=== PATIENT | male | born 1975 | race Caucasian/White ===

== ENCOUNTER 2017-04-28 08:36 | Emergency (ER) | payer SELFPAY ==
[2017-04-28] MEDS ORDERED: DEXAMETHASONE SOD PHOS INJ 10 MG/1 ML VIAL IM ONE (10:03)
--- NOTE | 2017-04-28 10:10 | RADIOLOGY REPORT (SQ) ---
EXAM DESCRIPTION: CERV SP 4 OR 5 VIEWS COMPLETED DATE/TIME: 04/28/2017 10:01 am REASON FOR STUDY: right neck pain, radiculitis RUE COMPARISON: None. NUMBER OF VIEWS: Five views. TECHNIQUE: AP, lateral, obliques and odontoid radiographic images acquired of the cervical spine. LIMITATIONS: None. FINDINGS: MINERALIZATION: Normal. ALIGNMENT: Anatomic. VERTEBRAE: Vertebral bodies of normal height. DISCS: No significant osteophytes or sclerosis. Disc height maintained. FORAMINA: No osteophytes or foraminal narrowing. LATERAL AND POSTERIOR ELEMENTS: Facets, lateral masses and spinous processes without significant find ings. HARDWARE: None in the spine. SOFT TISSUES: No masses or calcifications. Lung apices clear. OTHER: No other significant finding. IMPRESSION: NO SIGNIFICANT RADIOGRAPHIC FINDING IN THE CERVICAL SPINE. TECHNICAL DOCUMENTATION: JOB ID: [id number] [employer])- All Rights Reserved
--- NOTE | 2017-04-28 10:11 | ER Document Report ---
ED General - General Chief Complaint: Numbness of Arm Stated Complaint: RIGHT ARM PAIN Time Seen by Provider: 04/28/17 09:20 TRAVEL OUTSIDE OF THE [place] IN LAST 30 DAYS: No - HPI Notes: Patient with a history of chronic neck pain presents the ED complaining of intermittent tingling and numbness to his right upper extremity that started this morning. Patient states that he has had this in the past and was evaluated for it, but cannot remember what his diagnosis was. Patient states that the symptoms are exacerbated when he abduction and flexes his right arm at the shoulder. Patient states that he does feel a spasm in his right cervical paraspinal area. Otherwise, he states that he is feeling well without any other concerns or complaints. He denies any significant past medical history. Denies any procedures or injections into his back/neck. Denies any IV drug use. Denies any headache, fever, head injury, changes in vision/speech/ mentation/hearing, URI, sore throat, chest pain, palpitations, syncope, cough, shortness of breath, wheeze, dyspnea, abdominal pain, nausea/vomiting/diarrhea, urinary retention, dysuria, hematuria, loss of control of bowel or bladder, numbness/tingling, saddle anesthesia, muscle paralysis/weakness, or rash. - Related Data Allergies/Adverse Reactions: diphenhydramine [From Benadryl] Allergy (Verified 04/28/17 08:45) Sulfa (Sulfonamide Antibiotics) Allergy (Verified 04/28/17 08:44) sulfamethoxazole [From Bactrim] Allergy (Verified 04/28/17 08:44) trimethoprim [From Bactrim] Allergy (Verified 04/28/17 08:44) Home Medications: Current Home Medications Amitriptyline HCl [Elavil 10 Mg Tablet] 10 mg PO DAILY 04/28/17 [History] Past Medical History - Social History Smoking Status: Current Every Day Smoker Chew tobacco use (# tins/day): No Frequency of alcohol use: Rare Drug Abuse: None Family History: Reviewed & Not Pertinent Renal/ Medical History: Denies: Hx Peritoneal Dialysis Past Surgical History: Reports: Hx Orthopedic Surgery - back, face, sinus Review of Systems - Review of Systems Notes: REVIEW OF SYSTEMS: CONSTITUTIONAL : Denies fever, chills, or sweats. Denies recent illness. EENT: Denies eye, ear, throat, or mouth pain or symptoms. Denies nasal or sinus congestion or discharge. Denies throat, tongue, or mouth swelling or difficulty swallowing. CARDIOVASCULAR: Denies chest pain. Denies palpitations or racing or irregular heart beat. Denies ankle edema. RESPIRATORY: Denies cough, cold, or chest congestion. Denies shortness of breath, difficulty breathing, or wheezing. GASTROINTESTINAL: Denies abdominal pain or distention. Denies nausea, vomiting , or diarrhea. Denies blood in vomitus, stools, or per rectum. Denies black, tarry stools. Denies constipation. GENITOURINARY: Denies difficulty urinating, painful urination, burning, frequency, blood in urine, or discharge. MUSCULOSKELETAL: see hpi SKIN: Denies rash, lesions or sores. NEUROLOGICAL: see hpi. Denies confusion or altered mental status. Denies passing out or loss of consciousness. Denies dizziness or lightheadedness. Denies headache. Denies weakness or paralysis or loss of use of either side. Denies problems with gait or speech. Denies seizures. PSYCHIATRIC: Denies anxiety or stress. Denies depression, suicidal ideation, or homicidal ideation. ALL OTHER SYSTEMS REVIEWED AND NEGATIVE. Dictation was performed using KAL voice recognition software Physical Exam - Vital signs Vitals: Temp Pulse Resp BP Pulse Ox 98.3 F 68 18 112/71 98 04/28/17 08:42 04/28/17 08:42 04/28/17 08:42 04/28/17 08:42 04/28/17 08:42 Notes: PHYSICAL EXAMINATION: GENERAL: Well-appearing, well-nourished and in no acute distress. A&Ox4 HEAD: Atraumatic, normocephalic. Non-tender. EYES: Pupils equal round and reactive to light, extraocular movements intact, sclera anicteric, conjunctiva are normal. No raccoon eyes/entrapment ENT: EAC clear b/l. TM's intact b/l without erythema, fluid, or perforation. Nares patent and without discharge. oropharynx clear without exudates. No tonsilar hypertrophy or erythema. Moist mucous membranes. No sinus tenderness. NECK: Normal range of motion, supple without lymphadenopathy. No rigidity. No midline tenderness. Spurling negative. + mild tenderness to rt c-paraspinal mm and rt trap mm. Chest: No flail chest. equal rise/fall. Non-tender LUNGS: Breath sounds clear to auscultation bilaterally and equal. No wheezes rales or rhonchi. HEART: Regular rate and rhythm without murmurs, rubs, gallops. Musculoskeletal: Ext b/l: FROM to passive/active. Strength 5+/5. No deficits noted. No bony tenderness of extremities. Back: FROM to passive/active. Strength 5+/5. No vertebral point tenderness, stepoffs, or deformities. No other bony tenderness or ecchymosis. Extremities: No cyanosis, clubbing, or edema b/l. Peripheral pulses 2+. Capillary refill less than 2 seconds. NEUROLOGICAL: MMSE intact. Cranial nerves grossly intact. Normal speech, normal gait. Normal sensory, motor exams. Reflexes 2+ b/l. NGA's negative. Pronator drift negative. Heel/frank, finger/nose wnl. Walking on heels/toes and heel to toe wnl. PSYCH: Normal mood, normal affect. SKIN: Warm, Dry, normal turgor, no rashes or lesions noted. NIH score of 0. Course - Re-evaluation Re-evalutation: 04/28/17 10:33 Patient is an afebrile, well-hydrated, 42-year-old male who presents to the ED with cervicalgia and radiculitis with muscle spasming. Vitals are stable. PE otherwise unremarkable for any focal neurological deficits. C-spine x-ray was unremarkable for any acute pathology. Low suspicion for any acute glaucoma, temporal arteritis, meningitis, intracranial hemorrhage, ischemic stroke, fracture, epidural mass lesion/abscess, herniated disc causing severe spinal stenosis, or other systemic infection at this time. Patient is aware that his condition can change from initial presentation and that he needs monitor symptoms closely for any acute changes. Decadron 10 mg given IM today. I will send him home with a prescription for baclofen as well as naproxen. Conservative measures otherwise for symptoms. Recheck with your PCM this week. Consider consult with orthopedics/physical therapy as well. Return to the ED with any worsening/concerning symptoms otherwise as reviewed in discharge. Patient is in agreement. - Vital Signs Vital signs: Temp Pulse Resp BP Pulse Ox 98.3 F 68 18 112/71 98 04/28/17 08:42 04/28/17 08:42 04/28/17 08:42 04/28/17 08:42 04/28/17 08:42 Discharge - Discharge Clinical Impression: Cervicalgia, Radiculitis Condition: Stable Disposition: HOME, SELF-CARE Instructions: Ice Massage ([facility]), Ice Packs ([facility]), Warm Packs ([facility]) Additional Instructions: Rest, Ice, Compression, Elevation Tylenol/ibuprofen as needed Light stretches daily Strength exercises as able Moist heat and massage may help F/u with your PCP in 2-3 days for a recheck Consider consult(s) with Orthopedics/physical therapy for ongoing/worsening symptoms Return to the ED with any worsening symptoms and/or development of fever, changes in mentation/behavior/speech/vision, headache, chest pain, palpitations , syncope, shortness of breath, trouble breathing, abdominal pain, n/v/d, muscle weakness/paralysis, numbness/tingling, swelling, redness, or other worsening symptoms that are concerning to you. Prescriptions: Baclofen [Baclofen 10 mg Tablet] 5 mg PO BID PRN #10 tablet PRN Reason: Naproxen 500 mg PO BID PRN #30 tablet PRN Reason: Referrals: [facility] ([facility]) [Provider Group] - Follow up as needed [facility] [Provider Group] - Follow up as needed [facility] [Provider Group] - Follow up as needed [facility] [Provider Group] - Follow up as needed
[2017-04-28 10:42] VITALS: BP 110/65
== END 2017-04-28 10:42 | disposition home or self-care (01) ==
LOC: ER 08:36
DX: M54.10 Radiculopathy, site unspecified (principal); M54.2 Cervicalgia; R20.0 Anesthesia of skin; G89.29 Other chronic pain; M79.601 Pain in right arm; F17.200 Nicotine dependence, unspecified, uncomplicated
CPT/HCPCS: 99284; 96372; 72050; J1100

== ENCOUNTER 2017-12-27 21:14 | Emergency (ER) | payer MEDICAID ==
[2017-12-27] MEDS ORDERED: DEXAMETHASONE SOD PHOS INJ 10 MG/1 ML VIAL IM ONE (23:24)
[2017-12-27] MEDS ORDERED: KETOROLAC TROMETHAMINE INJ/PF 30 MG/1 ML SDV IM ONE (23:24)
--- NOTE | 2017-12-27 23:29 | ER Document Report ---
HPI - HPI Pain Level: 4 Notes: Patient is a 42-year-old male with a history of chronic lower back pain who presents to the ED complaining of left-sided lower back pain and left buttock pain status post injury prior to arrival. Patient states that he was carrying a couch with a bed inside and went down a step. No was there and "jolted" his back. Patient states that his back feels stiff and feels like there is a muscle spasm in the back. The pain does not radiate. He is still eating and drinking without difficulties. He is urinating normally and having normal bowel movements. He has not had any recent procedures or injections to his back. Denies any IV drug use. Patient states that he is still able to ambulate otherwise. Truncal movements make his pain worse. Denies any headache , fever, URI, sore throat, chest pain, palpitations, syncope, cough, shortness of breath, wheeze, dyspnea, abdominal pain, nausea/vomiting/diarrhea, urinary retention, dysuria, hematuria, loss of control of bowel or bladder, numbness/ tingling, saddle anesthesia, muscle paralysis/weakness, or rash. - ROS Systems Reviewed and Negative: Yes All other systems reviewed and negative Past Medical History - Social History Smoking Status: Unknown if Ever Smoked Family History: Reviewed & Not Pertinent Renal/ Medical History: Denies: Hx Peritoneal Dialysis Past Surgical History: Reports: Hx Orthopedic Surgery - back, face, sinus Vertical Provider Document - CONSTITUTIONAL Agree With Documented VS: Yes Notes: PHYSICAL EXAMINATION: GENERAL: Well-appearing, well-nourished and in no acute distress. LUNGS: Breath sounds clear to auscultation bilaterally and equal. No wheezes rales or rhonchi. HEART: Regular rate and rhythm without murmurs, rubs, gallops. ABDOMEN: Soft, nontender, nondistended abdomen. No guarding, no rebound. No masses appreciated. Normal bowel sounds present. No CVA tenderness bilaterally. No pulsatile mass Musculoskeletal: LE's b/l: FROM to passive/active. Strength 5+/5. No deficits noted. No bony tenderness of extremities. Back: FROM to passive/active. Strength 5+/5. No vertebral point tenderness, stepoffs, or deformities. No other bony tenderness, erythema, swelling, or ecchymosis. SLR negative b/l. + mild tenderness to the L-paraspinal mm left side. Mild spasming. + left SI jt tenderness. No foot drop Extremities: No cyanosis, clubbing, or edema b/l. Peripheral pulses 2+. Capillary refill less than 2 seconds. NEUROLOGICAL: Normal speech, ataxic gait. Normal sensory, motor exams. Reflexes 2+ b/l. PSYCH: Normal mood, normal affect. SKIN: Warm, Dry, normal turgor, no rashes or lesions noted. - INFECTION CONTROL TRAVEL OUTSIDE OF THE [place] IN LAST 30 DAYS: No Course - Re-evaluation Re-evalutation: 12/27/17 23:26 Patient is an afebrile, well-hydrated, 42-year-old male who presents to the ED with left lower back pain, suspect sprain versus strain. Vitals are acceptable. PE is otherwise unremarkable for any focal neurological deficits. Patient has no red flag signs/symptoms at this time. He has no significant tachycardia, tachypnea, or hypoxia. He does have reproducible tenderness in the soft tissue of his left L paraspinal area. Decadron and Toradol given IM today. I do not feel that other labs or imaging warranted at this time based on H&P. Low suspicion for any meningitis, fracture, expanding/ruptured AAA, cauda equina syndrome, epidural mass lesion/abscess, herniated disc causing severe spinal stenosis, or other systemic infection at this time. Patient is aware that his condition can change from initial presentation and that he needs monitor symptoms closely for any acute changes. I will send him home with a prescription for naproxen and baclofen. Conservative measures otherwise for symptoms. Recheck with your PCM in 3-5 days. Schedule an appoint with orthopedics for further evaluation and management. Return to the ED with any worsening/concerning symptoms otherwise as reviewed discharge. Patient is in agreement. - Vital Signs Vital signs: Temp Pulse Resp BP Pulse Ox 97.8 F 65 125/82 99 12/27/17 21:18 12/27/17 21:18 12/27/17 21:18 12/27/17 21:18 Discharge - Discharge Clinical Impression: Low back pain Qualifiers: Chronicity: acute Back pain laterality: left Sciatica presence: without sciatica Qualified Code(s): M54.5 - Low back pain Condition: Stable Disposition: HOME, SELF-CARE Instructions: Low Back Pain ([facility]), Muscle Strain ([facility]), Stretching Exercises for the Back ([facility]) Additional Instructions: Rest, Ice, Compression, Elevation Tylenol/ibuprofen as needed Light stretches daily Strength exercises as able Moist heat and massage may help F/u with your PCP in 3-5 days for a recheck Schedule a consult(s) with Orthopedics Return to the ED with any worsening symptoms and/or development of fever, headache, chest pain, palpitations, syncope, shortness of breath, trouble breathing, abdominal pain, n/v/d, blood in stool/urine, loss of control of bowel /bladder, urinary retention, muscle weakness/paralysis, saddle anesthesia, numbness/tingling, or other worsening symptoms that are concerning to you. Prescriptions: Baclofen [Baclofen 10 mg Tablet] 5 - 10 mg PO BID PRN #10 tablet PRN Reason: Naproxen 500 mg PO BID PRN #30 tablet PRN Reason: Referrals: [facility] ([facility]) [Provider Group] - Follow up in 1 week
[2017-12-28 00:37] VITALS: BP 128/66
== END 2017-12-28 | disposition home or self-care (01) ==
LOC: ER 21:14
DX: M54.5 Low back pain (principal); R25.2 Cramp and spasm
CPT/HCPCS: 99283; 96372; J1885; J1100

== ENCOUNTER 2018-01-22 07:14 | Emergency (ER) | payer MEDICAID ==
[2018-01-22 07:18] VITALS: BP 118/76
[2018-01-22] MEDS ORDERED: IPRATROPIUM/ALBUTEROL 0.5-2.5 MG/3 ML AMPUL NEB ONE (07:40)
[2018-01-22] MEDS ORDERED: PREDNISONE 20 MG TABLET PO ONE (07:40)
--- NOTE | 2018-01-22 07:40 | ER Document Report ---
HPI - HPI Patient complains to provider of: cough worse for 2 weeks Onset: Other Onset/Duration: Gradual, Persistent Quality of pain: Sharp - with cough Pain Level: 3 Context: 42 yo smoker male cough for 2 weeks. No sob or chest pain except with the cough. Increased mucous. No fever or chills. Associated Symptoms: None Exacerbated by: Other - see above Relieved by: Denies Similar symptoms previously: Yes Recently seen / treated by doctor: No - ROS ROS below otherwise negative: Yes Systems Reviewed and Negative: Yes All other systems reviewed and negative - REPRODUCTIVE Reproductive: DENIES: : Past Medical History - General Information source: Patient - Social History Smoking Status: Current Every Day Smoker Frequency of alcohol use: None Drug Abuse: None Lives with: Spouse/Significant other Family History: Reviewed & Not Pertinent Pulmonary Medical History: Reports: Hx Bronchitis Renal/ Medical History: Denies: Hx Peritoneal Dialysis Past Surgical History: Reports: Hx Orthopedic Surgery - back, face, sinus Vertical Provider Document - CONSTITUTIONAL Agree With Documented VS: Yes Exam Limitations: No Limitations General Appearance: No Apparent Distress - INFECTION CONTROL TRAVEL OUTSIDE OF THE [place] IN LAST 30 DAYS: No - HEENT HEENT: Normal ENT Exam - NECK Neck: Supple. negative: Lymphadenopathy-Left, Lymphadenopathy-Right - RESPIRATORY Respiratory: Breath Sounds Normal, No Respiratory Distress - CARDIOVASCULAR Cardiovascular: Regular Rate, Regular Rhythm - GI/ABDOMEN Gastrointestinal: Abdomen Soft, Abdomen Non-Tender - MUSCULOSKELETAL/EXTREMETIES Musculoskeletal/Extremeties: MAEW - NEURO Level of Consciousness: Awake - DERM Integumentary: No Rash Course - Re-evaluation Re-evalutation: 01/22/18 09:18 Chest x-ray is negative per rad patient feels better after the DuoNeb. He does not want prednisone because it makes him too nervous but he will take the albuterol metered-dose inhaler and Tessalon Perles. I spent time with him encouraging him to quit smoking. - Vital Signs Vital signs: Temp Pulse Resp BP Pulse Ox 98.8 F 80 18 118/76 98 01/22/18 07:17 01/22/18 07:17 01/22/18 07:17 01/22/18 07:17 01/22/18 07:17 Discharge - Discharge Clinical Impression: Bronchitis Condition: Good Disposition: HOME, SELF-CARE Instructions: Bronchitis ([facility]), Inhaled Bronchodilators ([facility]), Tessalon Perles ([facility]) Additional Instructions: Quit smoking Use the albuterol metered-dose inhaler 2 puffs every 3-4 hours for the cough Return to the emergency room any chest pain shortness of breath fever chills Samir Hoover for the cough Prescriptions: Albuterol Sulfate [Proair HFA Inhalation Aerosol 8.5 gm MDI] 2 puff IH Q3HP PRN #1 hfa.aer.ad PRN Reason: Benzonatate [Samir Hoover 100 mg Capsule] 100 mg PO ASDIR PRN #30 capsule PRN Reason: Referrals: MARGUERITE COVINGTON DO [NO LOCAL MD] - Follow up as needed
--- NOTE | 2018-01-22 08:14 | RADIOLOGY REPORT (SQ) ---
EXAM DESCRIPTION: CHEST 2 VIEWS COMPLETED DATE/TIME: 01/22/2018 7:49 am REASON FOR STUDY: cough COMPARISON: None. EXAM PARAMETERS: NUMBER OF VIEWS: two views TECHNIQUE: Digital Frontal and Lateral radiographic views of the chest acquired. RADIATION DOSE: NA LIMITATIONS: none FINDINGS: LUNGS AND PLEURA: No opacities, masses or pneumothorax. No pleural effusion. MEDIASTINUM AND HILAR STRUCTURES: No masses or contour abnormalities. HEART AND VASCULAR STRUCTURES: Heart normal size. No evidence for failure. BONES: No acute findings. HARDWARE: None in the chest. OTHER: No other significant finding. IMPRESSION: NO ACUTE RADIOGRAPHIC FINDING IN THE CHEST. TECHNICAL DOCUMENTATION: JOB ID: [id number] [employer]- All Rights Reserved Reading location - IP/workstation name: [email or web address]
== END 2018-01-22 09:34 | disposition home or self-care (01) ==
LOC: ER 07:14
DX: J40 Bronchitis, not specified as acute or chronic (principal); R05 Cough; F17.200 Nicotine dependence, unspecified, uncomplicated
CPT/HCPCS: 94640; 99283; 71046; J7620

== ENCOUNTER 2018-04-06 06:50 | Emergency (ER) | payer MEDICAID ==
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
[2018-04-06 10:06] VITALS: BP 122/82
== END 2018-04-06 10:07 | disposition home or self-care (01) ==
LOC: ER 06:50
DX: K04.7 Periapical abscess without sinus (principal); K02.9 Dental caries, unspecified; R51 Headache; F17.200 Nicotine dependence, unspecified, uncomplicated; Z98.890 Other specified postprocedural states; Z88.8 Allergy status to other drugs, medicaments and biological substances; Z88.2 Allergy status to sulfonamides; Z88.1 Allergy status to other antibiotic agents
CPT/HCPCS: 99283

== ENCOUNTER → 2018-06-06 | Outpatient (CLI) | payer MEDICAID ==
--- NOTE | 2018-06-06 10:06 | RADIOLOGY REPORT (SQ) ---
EXAM DESCRIPTION: KNEE RIGHT 4 VIEWS COMPLETED DATE/TIME: 06/06/2018 9:26 am REASON FOR STUDY: CHRONIC PAIN OF RIGHT KNEE M25.561 COMPARISON: None. NUMBER OF VIEWS: Four views. TECHNIQUE: AP, lateral, and both oblique radiographic images acquired of the right knee. LIMITATIONS: None. FINDINGS: MINERALIZATION: Normal. BONES: No acute fracture or dislocation. No worrisome bone lesions. JOINT: No effusion. SOFT TISSUES: No soft tissue swelling. No radio-opaque foreign body. OTHER: No other significant finding. IMPRESSION: NEGATIVE STUDY OF THE RIGHT KNEE. NO RADIOGRAPHIC EVIDENCE OF ACUTE INJURY. TECHNICAL DOCUMENTATION: JOB ID: [id number] [employer]- All Rights Reserved Reading location - IP/workstation name: [email or web address]
== END ==
LOC: OD 09:02
PROVIDERS: ATTEND Family Medicine
DX: M25.561 Pain in right knee (principal)

== ENCOUNTER 2018-12-13 16:57 | Emergency (ER) | payer MEDICAID, OTHER ==
[2018-12-13 17:05] VITALS: BP 143/75
[2018-12-13] MEDS ORDERED: PREDNISONE 20 MG TABLET PO ONE (18:05)
[2018-12-13] MEDS ORDERED: LIDOCAINE 5% (700 MG) TRANSDERMAL ADH..PATCH TP ONE (18:05)
--- NOTE | 2018-12-13 18:11 | ER Document Report ---
HPI - HPI Patient complains to provider of: Left arm pain Time Seen by Provider: 12/13/18 17:46 Onset/Duration: Persistent Quality of pain: Burning Pain Level: 3 Context: Patient states that he was moving furniture a month ago and developed a burning pain sensation to the proximal left forearm. Patient states pain radiates down the ulnar aspect of his arm to the fourth and fifth fingers. Patient states that he will twist his arm and it can affect whether or not he has a burning sensation. 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 Pt does report chronic neck pain although denies any pain radiating from his neck to the upper extremity. Associated Symptoms: Other - Left forearm burning pain Exacerbated by: Movement Relieved by: Denies Similar symptoms previously: No Recently seen / treated by doctor: No - ROS ROS below otherwise negative: Yes Systems Reviewed and Negative: Yes All other systems reviewed and negative - CONSTITUTIONAL Constitutional: DENIES: Fever, Chills - REPRODUCTIVE Reproductive: DENIES: : - MUSCULOSKELETAL Musculoskeletal: REPORTS: Extremity pain - left arm - DERM Skin Color: Normal Skin Problems: None Past Medical History - General Information source: Patient - Social History Smoking Status: Former Smoker Lives with: Family Family History: Reviewed & Not Pertinent Patient has suicidal ideation: No Patient has homicidal ideation: No Pulmonary Medical History: Reports: Hx Bronchitis Renal/ Medical History: Denies: Hx Peritoneal Dialysis Musculoskeletal Medical History: Reports Hx Arthritis - chronic neck pain Past Surgical History: Reports: Hx Orthopedic Surgery - back, face, sinus Vertical Provider Document - CONSTITUTIONAL Agree With Documented VS: Yes Exam Limitations: No Limitations General Appearance: WD/WN, No Apparent Distress - INFECTION CONTROL TRAVEL OUTSIDE OF THE [place] IN LAST 30 DAYS: No - HEENT HEENT: Atraumatic, Normocephalic - NECK Neck: Normal Inspection - RESPIRATORY Respiratory: No Respiratory Distress - CARDIOVASCULAR Pulses: Normal: Radial - BACK Back: Normal Inspection - MUSCULOSKELETAL/EXTREMETIES Musculoskeletal/Extremeties: SUELLEN FROM, No Edema - NEURO Level of Consciousness: Awake, Alert, Appropriate Motor/Sensory: No Sensory Deficit Notes: Patient with subtle decrease in facilities planner strength to left hand as compared to the right. Patient with tenderness in a ulnar nerve distribution pattern Course - Re-evaluation Re-evalutation: 12/13/18 18:07 Patient presents with pain symptoms in an ulnar nerve distribution pattern for the past month. Patient denies any traumatic injury or fever. Patient denies any upper arm pain symptoms. No concern for stroke. Patient does have a history of chronic neck pain. Patient encouraged to follow-up with primary doctor or neurologist for further management. - Vital Signs Vital signs: Temp Pulse Resp BP Pulse Ox 98.1 F 65 18 143/75 H 99 12/13/18 17:04 12/13/18 17:04 12/13/18 17:04 12/13/18 17:04 12/13/18 17:04 Discharge - Discharge Clinical Impression: Paresthesia and pain of left extremity Condition: Stable Disposition: HOME, SELF-CARE Instructions: Steroid Medication Additional Instructions: Return immediately for any new or worsening symptoms Followup with your primary care provider, call tomorrow to make a followup appointment Follow-up with neurology for further evaluation of your symptoms. Prescriptions: Lidocaine [Lidoderm 5% (700 mg) Transdermal Patch] 1 patch TP DAILY PRN #10 adh ..patch PRN Reason: Prednisone [Deltasone 20 mg Tablet] 2 tab PO DAILY 4 Days tablet Referrals: MARGUERITE COVINGTON DO [NO LOCAL MD] - Follow up as needed PIETRO TAYLOR MD [NO LOCAL MD] - Follow up as needed [facility] [Provider Group] - Follow up as needed [facility] [Provider Group] - Follow up tomorrow
== END 2018-12-13 18:18 | disposition home or self-care (01) ==
LOC: ER 16:57
DX: R20.0 Anesthesia of skin (principal); M79.602 Pain in left arm; R53.1 Weakness; X50.0XXA Overexertion from strenuous movement or load, initial encounter; Z87.891 Personal history of nicotine dependence
CPT/HCPCS: 99285; J7512

== ENCOUNTER 2019-01-04 16:09 | Emergency (ER) | payer SELFPAY ==
[2019-01-04 16:57] VITALS: BP 117/78
== END 2019-01-04 17:59 | disposition left against medical advice (07) ==
LOC: ER 16:09
DX: Z53.21 Procedure and treatment not carried out due to patient leaving prior to being seen by health care provider (principal); R51 Headache

== ENCOUNTER 2020-01-24 11:27 | Emergency (ER) | payer OTHER, BC ==
[2020-01-24] MEDS ORDERED: NAPROXEN 250 MG TABLET PO ONE (12:16)
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
[2020-01-24 14:05] VITALS: BP 127/76
== END 2020-01-24 14:01 | disposition home or self-care (01) ==
LOC: ER 11:27
DX: S16.1XXA Strain of muscle, fascia and tendon at neck level, initial encounter (principal); M54.6 Pain in thoracic spine; V43.52XA Car driver injured in collision with other type car in traffic accident, initial encounter; F17.290 Nicotine dependence, other tobacco product, uncomplicated; Z88.2 Allergy status to sulfonamides; I25.2 Old myocardial infarction
CPT/HCPCS: 72050; 72070; 99283